=== PATIENT | male | born 1965 | race Caucasian/White ===

== ENCOUNTER 2019-04-12 09:10 | Day surgery (SDC) | payer BC ==
[2019-04-06 15:16] VITALS: BMI 25.4
[~2019-04-12 09:10] MED LIST: LACTATED RINGERS 1,000 ML IV SCH; LIDOCAINE 1% 20 ML VIAL (10MG/ML) FOR IV START INTRADERMA PRN
[2019-04-12 09:31] VITALS: TEMP 97.8
[2019-04-12] MEDS ORDERED: PROPOFOL 10 MG/ML 20 ML VIAL IV ONE (10:05)
[2019-04-12 10:50] VITALS: PULSE 64
--- NOTE | 2019-04-12 10:51 | P.PCN ---
Date of Procedure: 04/12/19 Description of Procedure: BRIEF HISTORY: Patient is a 54-year-old pleasant male scheduled for an elective colonoscopy as a part of screening for malignant neoplasm of the colon. He denies any change in bowel habits, blood per rectum, family history of colon cancer. No prior colonoscopies reported. PROCEDURE PERFORMED: Colonoscopy with polypectomy and placement of an Endo Clip. PREOPERATIVE DIAGNOSIS: Screening for malignant neoplasm of the colon, no prior colonoscopy reported. ESTIMATED BLOOD LOSS: Minimal. IV sedation per Anesthesia. PROCEDURE: After informed consent was obtained, the patient, was brought into the endoscopy unit. IV sedation was administered by Anesthesia under continuous monitoring. Digital rectal examination was normal. Initially the Olympus CF-190 flexible video colonoscope was then inserted in the rectum, gradually advanced into the cecum without any difficulty. Careful examination was performed as the scope was gradually being withdrawn. Ileocecal valve and the appendiceal orifice were visualized and appeared normal. Prep was excellent. Mucosa of the cecum, ascending colon, transverse colon, descending colon, sigmoid colon, and rectum appeared normal. A large 17 mm pedunculated sigmoid polyp was removed with hot snare polypectomy with Endo Clip placement at the polypectomy site. Retroflexion was performed in the rectum and no lesions were seen. The patient tolerated the procedure well. IMPRESSION: Large pedunculated sigmoid colon polyp removed with hot snare polypectomy, with Endo Clip placement at polypectomy site. Otherwise, normal-appearing colon from rectum to cecum . RECOMMENDATIONS: Findings of this examination were discussed with the patient in his . Okay to resume diet. Okay to resume medications. Await pathology from polypectomy. Anticipate repeat colonoscopy in 3 years for high risk colon polyp pending pathology from polypectomy.
[2019-04-12 11:05] VITALS: BP 128/81; RESP 18
== END 2019-04-12 11:26 | disposition home or self-care (01) ==
LOC: ORWHC2ENDO 09:10
PROVIDERS: ATTEND Internal Medicine
DX: Z12.11 Encounter for screening for malignant neoplasm of colon (principal); C18.7 Malignant neoplasm of sigmoid colon; F17.200 Nicotine dependence, unspecified, uncomplicated; Z96.642 Presence of left artificial hip joint
CPT/HCPCS: 88305; 45385; J2704; 45382

== ENCOUNTER → 2019-05-19 | Outpatient (CLI) | payer BC ==
[2019-05-19 15:15] LABS: Basophils # (A) 0.1 k/uL (0-0.2); Basophils % (A) 1 %; Eosinophils # (A) 0.2 k/uL (0-0.7); Eosinophils % (A) 4 %; HCT 50.2 % (39.0-53.0); HGB 16.2 gm/dL (13.0-17.5); Lymphocytes % (A) 20 %; MCHC 32.3 g/dL (31.0-37.0); MCV 95.8 fL (80.0-100.0); Mean Platelet Volume 6.5; Monocytes # (A) 0.3 k/uL (0-1.0); Monocytes % (A) 7 %; Neutrophils # (A) 3.1 k/uL (1.3-7.7); Neutrophils % (A) 66 %; Platelet Count 317 k/uL (150-450); RBC 5.24 m/uL (4.30-5.90); RDW 12.2 % (11.5-15.5); WBC 4.7 k/uL (3.8-10.6)
[2019-05-19 15:23] LABS: ALT 23 U/L (4-49); AST 32 U/L (17-59); African American GFR (CKD) >90 (>60 ml/min/1.73 sqM); Alkaline Phosphatase 84 U/L (38-126); Anion Gap 7 mmol/L; Blood Urea Nitrogen 19 mg/dL (9-20); Calcium 9.8 mg/dL (8.4-10.2); Carbon Dioxide 30 mmol/L (22-30); Chloride 102 mmol/L (98-107); Glucose 111 mg/dL (74-99); Non-African American GFR(CKD) >90 (>60 ml/min/1.73 sqM); Potassium 4.7 mmol/L (3.5-5.1); Sodium 139 mmol/L (137-145); Total Bilirubin 1.2 mg/dL (0.2-1.3); Total Protein 7.9 g/dL (6.3-8.2)
--- NOTE | 2019-05-19 16:37 | CT ---
EXAMINATION TYPE: CT abdomen pelvis w con DATE OF EXAM: 05/19/2019 COMPARISON: NONE HISTORY: 54-year-old male polyps, possible colon ca TECHNIQUE: Contiguous axial scanning of the abdomen and pelvis following administration of 100 ml Iso vinnie 300 IV contrast. Delayed images through the kidneys and coronal/sagittal reconstructions perform ed. CT DLP: 1115 mGycm Automated exposure control for dose reduction was used. FINDINGS: Heart normal size without pericardial effusion. Lung bases clear without pleural effusion. 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 No focal liver lesion or biliary ductal dilatation. Portal venous system is patent. Gallbladder, adrenal glands, and pancreas appear within normal limits. Minimal perinephric edema, somewhat greater on the right. Slightly striated nephrograms on the delaye d kidney images may be artifactual. Subcentimeter hypodensity anterior left kidney too small for accu rate CT characterization, likely cyst. Nonspecific prominent 8 mm left periaortic lymph node. No additional mesenteric or retroperitoneal ly mphadenopathy identified. Tiny fatty umbilical hernia. Normal appendix. Oral contrast progressed to the proximal sigmoid colon. Mild stool burden. Moderate stool within the distal sigmoid and rectum. Bladder is urine distended. Prostate gland is enlarged measuring 5.5 cm wide. Patulous inguinal canal s. No abnormal fluid collection in the pelvis or pelvic lymphadenopathy. Bones: Left hip total arthroplasty. Degenerative changes at the right hip. Degenerative bridging anky losis at the SI joints. Hypertrophic facet arthropathy lower lumbar spine with trace grade 1 anteroli sthesis at L3-L4. Transitional lumbosacral segment with sacralized L5. Degenerative disc disease lowe r thoracic spine. IMPRESSION: 1. MODERATE STOOL WITHIN THE DISTAL SIGMOID AND RECTUM. 2. NONSPECIFIC BORDERLINE SIZED 8 MM LEFT PARAAORTIC LYMPH NODE, LIKELY CHRONIC REACTIVE/POST INFLAMM ATORY. NO ADDITIONAL SUSPICIOUS LYMPHADENOPATHY SEEN IN THE ABDOMEN OR PELVIS. 3. MILD PERINEPHRIC EDEMA MAY BE SEEN WITH SENESCENT CHANGE OR CHRONIC KIDNEY DISEASE. SLIGHTLY STRIA JEFF APPEARANCE TO THE NEPHROGRAMS ON DELAYED KIDNEY IMAGES MAY BE ARTIFACTUAL. CORRELATE WITH PATIENT 'S SYMPTOMS AND URINALYSIS TO EXCLUDE THE POSSIBILITY OF UNDERLYING INFECTION. 4. PROSTATOMEGALY OF 5.5 CM WIDE.
== END | disposition home or self-care (01) ==
LOC: RADCTMAIN 13:10
PROVIDERS: ATTEND Surgery
DX: N40.0 Benign prostatic hyperplasia without lower urinary tract symptoms (principal); C18.9 Malignant neoplasm of colon, unspecified
CPT/HCPCS: 80053; 82378; 85025; 74177; 36415; Q9967

== ENCOUNTER → 2019-06-28 | Outpatient (CLI) | payer BC ==
[2019-06-28 12:08] LABS: HCT 46.9 % (39.0-53.0); HGB 15.3 gm/dL (13.0-17.5); MCH 31.2 pg (25.0-35.0); MCHC 32.6 g/dL (31.0-37.0); MCV 95.6 fL (80.0-100.0); Mean Platelet Volume 6.5; Platelet Count 332 k/uL (150-450); RDW 12.3 % (11.5-15.5); WBC 5.6 k/uL (3.8-10.6)
== END | disposition home or self-care (01) ==
LOC: LABPAT 10:56
PROVIDERS: ATTEND Surgery
DX: Z01.818 Encounter for other preprocedural examination (principal); Z01.812 Encounter for preprocedural laboratory examination; C18.9 Malignant neoplasm of colon, unspecified
CPT/HCPCS: 36415; 80051; 85027; 93005

== ENCOUNTER 2019-07-02 07:00 | Inpatient (IN) | payer BC ==
[2019-06-28 12:20] VITALS: BMI 25.4
[~2019-07-02 07:00] MED LIST changes: +DEXAMETHASONE SOD PHOSPHATE 10 MG/ML 1 ML VIAL IV ONE; +HEPARIN SODIUM,PORCINE 5,000 UNIT/ML 1 ML VIAL SQ ONE; +HYDROmorphone 0.5 MG/0.5 ML SYRINGE IVP PRN; -LACTATED RINGERS 1,000 ML IV SCH; +ONDANSETRON 4 MG/2 ML VIAL IVP PRN; +SCOPOLAMINE 1.5MG/72HR PATCH TRANSDERM ONE; +metroNIDAZOLE-NS PMX 500 MG in SALINE 1 100ML.BAG IVPB ONE
[2019-07-02] MEDS ORDERED: ALVIMOPAN 12 MG CAPSULE PO ONE (07:33)
[2019-07-02] MEDS: LACTATED RINGERS 1,000 ML IV SCH (07:34)
[2019-07-02] MEDS ORDERED: MIDAZOLAM 2 MG/2 ML VIAL IVP ONE (07:44)
[2019-07-02] MEDS ORDERED: fentaNYL (PF) 50 MCG/ML 2 ML AMP IVP ONE (07:46)
[2019-07-02] MEDS ORDERED: NALOXONE 0.4 MG/ML 1 ML VIAL IV PRN (08:34)
[2019-07-02] MEDS ORDERED: ROCURONIUM BROMIDE 10 MG/ML 5 ML VIAL IV ONE (08:45)
[2019-07-02] MEDS ORDERED: LIDOCAINE 1% INJ 10MG/ML (20 ML MDV) ONE (08:45)
[2019-07-02] MEDS ORDERED: PROPOFOL 10 MG/ML 20 ML VIAL IV ONE (08:45)
[2019-07-02] MEDS ORDERED: NEOSTIGMINE 1 MG/ML 10 ML VIAL ONE (08:45)
[2019-07-02] MEDS ORDERED: HEPARIN SODIUM,PORCINE 5,000 UNIT/ML 1 ML VIAL ONE (08:45)
[2019-07-02] MEDS ORDERED: ePHEDrine SULFATE/0.9% NACL/PF 50 MG/5 ML SYRINGE IV ONE (08:45)
[2019-07-02] MEDS ORDERED: fentaNYL (PF) 50 MCG/ML 2 ML AMP ONE (08:45)
[2019-07-02] MEDS ORDERED: MIDAZOLAM 2 MG/2 ML VIAL ONE (08:45)
[2019-07-02] MEDS ORDERED: GLYCOPYRROLATE 0.2 MG/ML 2 ML VIAL ONE (08:45)
[2019-07-02] MEDS ORDERED: LACTATED RINGERS 1,000 ML IV ONE ×2 (09:19→11:05)
[2019-07-02] MEDS ORDERED: HYDROmorphone 1 MG/ML 1 ML SYRINGE IVP PRN (10:52)
[2019-07-02] MEDS ORDERED: ONDANSETRON 4 MG/2 ML VIAL IVP PRN (10:52)
--- NOTE | 2019-07-02 10:57 | P.OP ---
Date of Procedure: 07/02/19 Procedure(s) Performed: PREOPERATIVE DIAGNOSIS: Sigmoid colon cancer, umbilical hernia POSTOPERATIVE DIAGNOSIS: Same PROCEDURE: Low anterior sigmoid resection, repair umbilical hernia SURGEON: Antelmo EBL: 25 mL ANESTHESIA: General COMPLICATIONS: None OPERATIVE PROCEDURE: Patient place in the operative table in the supine position. The patient was placed under general anesthesia. The patient was then placed in lithotomy. The abdomen was prepped and draped in usual sterile fashion. A vertical incision was made extending from the infraumbilical location to the suprapubic location. The fascia was divided as well. The fascia at the umbilical hernia site was incorporated into the midline incision. This was dissected fully. The Bookwalter retractor was utilized. The sigmoid colon was fully mobilized by incising the white line of Toldt. The left and right ureters were both identified and preserved. The tattoo site in the mid sigmoid colon was easily identified. A site was chosen for division of the sigmoid colon proximal to the tattoo site. A small colotomy was created and the 29 EEA anvil was advanced into the lumen of the sigmoid colon and milked proximally. The bowel was then divided using a linear 75 stapler and the anvil was brought out adjacent to the staple line. A 3-0 silk pursestring suture was placed around the anvil at that location. The mesentery was divided using the LigaSure device. Larger vessels were ligated using 3-0 [address] ties. Dissection took place down to the proximal rectum where the tenia was noted to splay out. The proximal rectum was divided using the contour stapler. The specimen was passed off the field at that point. No signs of bleeding at either staple line was noted after irrigation. The stapler was then inserted into the anus and brought up to the staple line. The obturator was brought out just posterior to the staple line. The 2 portions of the stapler were connected to one another and subsequently tightened and fired. The bowel was clamped proximal to the anastomosis. The rigid sigmoidoscope was utilized to fill the anastomotic site nicely with air. There was saline in the pelvis at this time. No evidence of leak was seen. The abdomen was irrigated with saline. The liver, stomach, visualized colon, and small bowel appeared normal. The midline fascia was then reapproximated using 2 separate double-stranded #1 PDS sutures. The subcutaneous tissues were closed using 3-0 Vicryl sutures. The skin was then closed using anitra. Sterile dressings were then applied. DISPOSITION: Stable to recovery room
[2019-07-02] MEDS: ROPIVACAINE 250 MG, fentaNYL (PF) 625 MCG in SODIUM CHLORIDE 0.9% 188 ML EPIDURAL PRN ×2 (11:06→11:37)
[2019-07-02 12:02] LABS: Glucose,Whole Blood 126 mg/dL (75-99)
[2019-07-02] MEDS: D5-0.45% NACL WITH KCL 20MEQ/L 1,000 ML IV SCH ×2 (17:20→21:03)
[2019-07-02] MEDS: KETOROLAC 30 MG/ML 1 ML VIAL IVP SCH (17:52)
[2019-07-02] MEDS: FAMOTIDINE 20 MG/2 ML VIAL IV SCH (20:58)
[2019-07-03] MEDS: D5-0.45% NACL WITH KCL 20MEQ/L 1,000 ML IV SCH ×4 (00:47→23:14)
[2019-07-03 07:17] LABS: Basophils % (A) 0 %; Eosinophils % (A) 0 %; HCT 40.4 % (39.0-53.0); HGB 13.3 gm/dL (13.0-17.5); Lymphocytes # (A) 0.9 k/uL (1.0-4.8); Lymphocytes % (A) 11 %; MCH 30.9 pg (25.0-35.0); MCHC 32.9 g/dL (31.0-37.0); MCV 93.9 fL (80.0-100.0); Mean Platelet Volume 6.4; Monocytes # (A) 0.6 k/uL (0-1.0); Monocytes % (A) 7 %; Neutrophils # (A) 6.4 k/uL (1.3-7.7); Neutrophils % (A) 80 %; Platelet Count 265 k/uL (150-450); RDW 12.3 % (11.5-15.5)
[2019-07-03 07:36] LABS: African American GFR (CKD) >90 (>60 ml/min/1.73 sqM); Anion Gap 6 mmol/L; Blood Urea Nitrogen 12 mg/dL (9-20); Calcium 8.6 mg/dL (8.4-10.2); Carbon Dioxide 26 mmol/L (22-30); Chloride 102 mmol/L (98-107); Glucose 112 mg/dL (74-99); Non-African American GFR(CKD) >90 (>60 ml/min/1.73 sqM); Potassium 4.6 mmol/L (3.5-5.1); Sodium 134 mmol/L (137-145)
[2019-07-03] MEDS: FAMOTIDINE 20 MG/2 ML VIAL IV SCH ×2 (08:22→20:29)
--- NOTE | 2019-07-03 09:16 | P.CONS ---
History of Present Illness - Reason for Consult Consult date: 07/03/19 Medical management - History of Present Illness This is a 54-year-old male patient of Dr. Pittman with past medical history of colon cancer recently diagnosed following colonoscopy done by Dr. Reno. Pathology was positive for sigmoid colon polyp invasive moderately differentiated adenocarcinoma arising in tubular adenoma. Patient is been brought into the hospital under care of Dr. Rodriges status post low anterior sigmoid resection and repair of umbilical hernia. Patient is currently on epidural for pain control and Li catheter in place. He is tolerating clear liquids with no nausea or vomiting. Patient denies having any lightheadedness or dizziness. Patient states he is passing gas and did have a bowel movement. Patient states he is utilizing incentive spirometry 10 times per hour. Patient is reaching 3000 ML's. Patient states he is scheduled to see Dr. Gonzalez on July 28. Review of Systems Constitutional: Denies anorexia, Denies chills, Denies fatigue, Denies fever, Denies lethargy, Denies poor appetite, Denies weakness Eyes: denies blurred vision, denies pain Ears, nose, mouth and throat: Denies headache, Denies sore throat, Denies vertigo Cardiovascular: Denies chest pain, Denies decreased exercise tolerance, Denies dyspnea on exertion, Denies edema, Denies leg edema, Denies lightheadedness, Denies shortness of breath, Denies syncope Respiratory: Denies cough, Denies cough with sputum, Denies dyspnea, Denies excessive sputum, Denies hemoptysis, Denies home oxygen, Denies snoring, Denies wheezing Gastrointestinal: Denies abdominal pain, Denies constipation, Denies diarrhea, Denies loss of appetite, Denies nausea, Denies vomiting Genitourinary: Denies dysuria, Denies urinary retention (li) Musculoskeletal: Denies frequent falls, Denies gait dysfunction, Denies muscle weakness, Denies myalgias Integumentary: Denies pruritus, Denies rash Neurological: Denies change in mentation, Denies change in speech, Denies numbness, Denies weakness Psychiatric: Denies anxiety, Denies depression Endocrine: Denies fatigue, Denies weight change Past Medical History Past Medical History: No Reported History Additional Past Medical History / Comment(s): NEW DX COLON CANCER BY DR. RENO History of Any Multi-Drug Resistant Organisms: None Reported Past Surgical History: Joint Replacement Additional Past Surgical History / Comment(s): LT BIBI. COLONOSCOPY Past Anesthesia/Blood Transfusion Reactions: No Reported Reaction Smoking Status: Light tobacco smoker Additional Past Alcohol Use History / Comment(s): Patient care will occasionally smokes a cigar possibly up to 3-4 times per year only. No marijuana or illicit drug use. - Past Family History Mother Family Medical History: No Reported History Additional Family Medical History / Comment(s): Mother is alive at age 75 with Alzheimer's dementia. Father Additional Family Medical History / Comment(s): Patient does not have any contact with his father but does know that he has history of diverticulitis. Sister(s) Additional Family Medical History / Comment(s): Patient has 2 sisters with no major medical problems. Patient has 2 stepbrothers. Patient has one son that is mentally handicapped and one daughter with no major medical problems. Medications and Allergies Home Medications Medication Instructions Recorded Confirmed Type Sildenafil Citrate [Viagra] 25 mg PO DIRECTED PRN 04/06/19 07/02/19 History Allergies Allergy/AdvReac Type Severity Reaction Status Date / Time No Known Allergies Allergy Verified 06/28/19 12:02 Physical Exam Vitals: Vital Signs Temp Pulse Pulse Resp BP Pulse Ox 07/03/19 07:00 98.5 F 67 17 131/80 92 L 07/03/19 01:02 98.5 F 68 15 132/85 97 07/02/19 23:19 15 07/02/19 19:01 98.1 F 78 15 106/70 94 L 07/02/19 14:45 69 112/72 96 07/02/19 14:30 81 112/72 96 07/02/19 14:00 80 101/67 96 07/02/19 13:45 81 105/66 94 L 07/02/19 13:30 80 102/55 95 07/02/19 13:15 70 102/63 95 07/02/19 13:00 83 118/68 96 07/02/19 12:45 73 146/76 97 07/02/19 12:30 70 114/72 95 07/02/19 12:15 97.7 F 66 114/72 95 07/02/19 11:36 64 16 126/74 94 L 07/02/19 11:20 73 16 133/65 96 07/02/19 11:05 66 16 132/61 94 L 07/02/19 10:51 96.8 F L 80 12 125/84 96 Intake and Output 07/02/19 07/03/19 07/03/19 22:59 06:59 14:59 Intake Total 400 Output Total 400 1600 675 Balance -400 1600 -217 Intake: Oral 400 Output: Urine 400 1600 675 Other: Voiding Method Indwelling Catheter Indwelling Catheter Indwelling Catheter # Voids 1 Gen: This is a 54-year-old male. He is resting in the recliner and appears to be comfortable and in no acute distress. HEENT: Head is atraumatic, normocephalic. Pupils equal, round. Sclerae is anicteric. NECK: Supple. No JVD. No lymphadenopathy. No thyromegaly. LUNGS: Clear to auscultation. No wheezes or rhonchi. No intercostal retractions. HEART: Regular rate and rhythm. No murmur. ABDOMEN: Soft. Bowel sounds hypoactive. No masses. No tenderness. Midline incision. Li catheter in place draining pale clear bela urine. Epidural in place. EXTREMITIES: No pedal edema. No calf tenderness. JEFF hose in place. NEUROLOGICAL: Patient is awake, alert and oriented x3. Cranial nerves 2 through 12 are grossly intact. Results CBC & Chem 7: 07/03/19 06:43 07/03/19 06:43 Labs: Abnormal Lab Results - Last 24 Hours (Table) 07/02/19 07/03/19 07/03/19 Range/Units 11:59 06:43 06:43 Lymphocytes # 0.9 L (1.0-4.8) k/uL Sodium 134 L (137-145) mmol/L Glucose 112 H (74-99) mg/dL POC Glucose (mg/dL) 126 H (75-99) mg/dL Assessment and Plan Plan: 1. Sigmoid colon cancer status post lower anterior sigmoid resection and repair of umbilical hernia. Continue current pain management, incentive spirometry to reduce incidence of atelectasis and hospital-acquired pneumonia, activity. Patient is currently tolerating clear liquid diet. Pathology is pending. 2. Osteoarthritis with previous history of left total hip arthroplasty stable. 3. DVT prophylaxis. Heparin subcu. 4. GI prophylaxis. Pepcid. Discharge plan: home Impression and plan of care have been directed as dictated by the signing physician. Kate Ann nurse practitioner acting as scribe for signing physician.
--- NOTE | 2019-07-03 09:44 | P.PN ---
Progress Note - Text Progress Note Date: 07/03/19 POD 1, Cath day 2 with a T8-9 epidural placed for a sigmoid colectomy. running between 4-6ml/hr. doing well, no issues overnight. Analgesia is adequate, no PRN meds used over night. Able to ambulate. site is clean and dry, no erythema. NO pruritis. continue epidural catheter at current settings.
[2019-07-03] MEDS: LACTATED RINGERS 1,000 ML IV SCH ×2 (10:42→23:15)
--- NOTE | 2019-07-03 12:06 | P.PN ---
Subjective Progress Note Date: 07/03/19 Principal diagnosis: Colon cancer Patient doing well today. Had a small and flatus with blood earlier today. White blood cell count 8 hemoglobin 13.3. Vitals are stable. He is ambulating quite a bit. Objective - Vital Signs Vital signs: Vital Signs Temp 98.5 F 07/03/19 07:00 Pulse 67 07/03/19 07:00 Resp 17 07/03/19 07:00 BP 131/80 07/03/19 07:00 Pulse Ox 92 L 07/03/19 07:00 Intake & Output 07/02/19 07/03/19 07/03/19 18:59 06:59 18:59 Intake Total 2654 400 Output Total 125 1999 Balance 2528 -1999 Weight 74.843 kg Intake: IV 2654 Oral 400 Output: Urine 100 1999 67 Estimated Blood Loss 25 Other: Voiding Method Indwelling Catheter Indwelling Catheter Indwelling Catheter # Voids 1 - Exam Abdomen: Soft, minimal distention, mild tenderness, dressing clean and dry - Labs CBC & Chem 7: 07/03/19 06:43 07/03/19 06:43 Labs: Abnormal Lab Results - Last 24 Hours (Table) 07/03/19 07/03/19 Range/Units 06:43 06:43 Lymphocytes # 0.9 L (1.0-4.8) k/uL Sodium 134 L (137-145) mmol/L Glucose 112 H (74-99) mg/dL Assessment and Plan (1) Cancer of sigmoid colon Narrative/Plan: Continue clear liquids. Ambulate. Continue heparin subcu. Resume Entereg. Recheck labs tomorrow. Current Visit: Yes Status: Acute Code(s): C18.7 - MALIGNANT NEOPLASM OF S IGMOID COLON SNOMED Code(s): 755267682
[2019-07-03] MEDS: ALVIMOPAN 12 MG CAPSULE PO SCH ×2 (12:20→20:29)
[2019-07-03] MEDS: ROPIVACAINE 250 MG, fentaNYL (PF) 625 MCG in SODIUM CHLORIDE 0.9% 188 ML EPIDURAL PRN (15:44)
[2019-07-03] MEDS: HEPARIN SODIUM,PORCINE 5,000 UNIT/ML 1 ML VIAL SQ SCH ×2 (15:52→23:14)
[2019-07-04] MEDS: D5-0.45% NACL WITH KCL 20MEQ/L 1,000 ML IV SCH ×3 (06:01→23:57)
[2019-07-04 06:52] LABS: Basophils % (A) 0 %; Eosinophils # (A) 0.2 k/uL (0-0.7); Eosinophils % (A) 3 %; HGB 13.8 gm/dL (13.0-17.5); Lymphocytes # (A) 0.8 k/uL (1.0-4.8); Lymphocytes % (A) 11 %; MCH 30.8 pg (25.0-35.0); MCV 93.6 fL (80.0-100.0); Mean Platelet Volume 6.2; Monocytes # (A) 0.4 k/uL (0-1.0); Monocytes % (A) 6 %; Neutrophils # (A) 5.9 k/uL (1.3-7.7); Neutrophils % (A) 79 %; Platelet Count 280 k/uL (150-450); RBC 4.48 m/uL (4.30-5.90); RDW 12.3 % (11.5-15.5); WBC 7.5 k/uL (3.8-10.6)
[2019-07-04 06:58] LABS: African American GFR (CKD) >90 (>60 ml/min/1.73 sqM); Anion Gap 6 mmol/L; Blood Urea Nitrogen 9 mg/dL (9-20); Calcium 8.7 mg/dL (8.4-10.2); Carbon Dioxide 24 mmol/L (22-30); Chloride 104 mmol/L (98-107); Glucose 109 mg/dL (74-99); Non-African American GFR(CKD) >90 (>60 ml/min/1.73 sqM); Potassium 4.4 mmol/L (3.5-5.1); Sodium 134 mmol/L (137-145)
[2019-07-04] MEDS: HEPARIN SODIUM,PORCINE 5,000 UNIT/ML 1 ML VIAL SQ SCH ×3 (08:14→23:57)
[2019-07-04] MEDS: FAMOTIDINE 20 MG/2 ML VIAL IV SCH ×2 (08:15→21:40)
[2019-07-04] MEDS: ALVIMOPAN 12 MG CAPSULE PO SCH ×2 (08:15→21:40)
--- NOTE | 2019-07-04 10:35 | P.PN ---
Subjective Progress Note Date: 07/04/19 Principal diagnosis: Colon cancer Patient doing well today. He did pass flatus once again. No rectal bleeding. Tolerating clear liquids. White blood cell count normal. He is afebrile. Objective - Vital Signs Vital signs: Vital Signs Temp 98.3 F 07/04/19 07:00 Pulse 79 07/04/19 07:00 Resp 16 07/04/19 07:00 BP 129/82 07/04/19 07:00 Pulse Ox 92 L 07/04/19 07:00 Intake & Output 07/03/19 07/04/19 07/04/19 18:59 06:59 18:59 Intake Total 1800 1500 Output Total 2275 2600 Balance -475 -1100 Intake: Intake, IV Titration 1000 1500 Amount D5-0.45% NaCl with KCl 1000 1500 20Meq/l 1,000 ml @ 125 mls/hr IV .Q8H [facility] Rx#: [id number] Oral 800 Output: Urine 2275 2600 Other: Voiding Method Indwelling Catheter Indwelling Catheter Indwelling Catheter - Exam Abdomen: Soft, minimal distention, minimal tenderness, dressing clean dry - Labs CBC & Chem 7: 07/04/19 06:22 07/04/19 06:22 Labs: Abnormal Lab Results - Last 24 Hours (Table) 07/04/19 07/04/19 Range/Units 06:22 06:22 Lymphocytes # 0.8 L (1.0-4.8) k/uL Sodium 134 L (137-145) mmol/L Glucose 109 H (74-99) mg/dL Assessment and Plan (1) Cancer of sigmoid colon Narrative/Plan: Add abdominal binder. Begin full liquids for dinner. Continue ambulation. Current Visit: Yes Status: Acute Code(s): C18.7 - MALIGNANT NEOPLASM OF SIGMOID COLON SNOMED Code(s): 076602047
--- NOTE | 2019-07-04 10:58 | P.PN ---
Subjective Progress Note Date: 07/04/19 This is a 54-year-old male patient of Dr. Pittman with past medical history of colon cancer recently diagnosed following colonoscopy done by Dr. Reno. Pathology was positive for sigmoid colon polyp invasive moderately differentiated adenocarcinoma arising in tubular adenoma. Patient is been br ought into the hospital under care of Dr. Rodriges status post low anterior sigmoid resection and repair of umbilical hernia. Patient is currently on epidural for pain control and Li catheter in place. He is tolerating clear liquids with no nausea or vomiting. Patient denies having any lightheadedness or dizziness. Patient states he is passing gas and did have a bowel movement. Patient states he is utilizing incentive spirometry 10 times per hour. Patient is reaching 3000 ML's. Patient states he is scheduled to see Dr. Gonzalez on July 28. 07/04: Patient remains with epidural and Li in place. His pain is a 0.5 out of 10. He states his appetite is good. He is tolerating diet of clear liquids with no nausea or vomiting. He has passing gas. Patient is ambulatory and using a walker. Patient is afebrile, heart rate 79, blood pressure 129/82, pulse ox 92% on room air. CBC is normal, sodium 134, creatinine 0.89, blood sugar 109. Patient is to start full liquids for dinner today. Objective - Vital Signs Vital signs: Vital Signs Temp 98.3 F 07/04/19 07:00 Pulse 79 07/04/19 07:00 Resp 16 07/04/19 07:00 BP 129/82 07/04/19 07:00 Pulse Ox 92 L 07/04/19 07:00 Intake & Output 07/03/19 07/04/19 07/04/19 18:59 06:59 18:59 Intake Total 1800 1500 Output Total 2275 2600 Balance -475 -1100 Intake: Intake, IV Titration 1000 1500 Amount D5-0.45% NaCl with KCl 1000 1500 20Meq/l 1,000 ml @ 125 mls/hr IV .Q8H [facility] Rx#: [id number] Oral 800 Output: Urine 2275 2600 Other: Voiding Method Indwelling Catheter Indwelling Catheter Indwelling Catheter - Exam Review of Systems Constitutional: Denies anorexia, Denies chills, Denies fatigue, Denies fever, Denies lethargy, Denies poor appetite, Denies weakness Eyes: denies blurred vision, denies pain Ears, nose, mouth and throat: Denies headache, Denies sore throat, Denies vertigo Cardiovascular: Denies chest pain, Denies decreased exercise tolerance, Denies dyspnea on exertion, Denies edema, Denies leg edema, Denies lightheadedness, Denies shortness of breath, Denies syncope Respiratory: Denies cough, Denies cough with sputum, Denies dyspnea, Denies excessive sputum, Denies hemoptysis, Denies home oxygen, Denies snoring, Denies wheezing Gastrointestinal: Denies abdominal pain (0.5/10), Denies constipation, Denies diarrhea, Denies loss of appetite, Denies nausea, Denies vomiting Genitourinary: Denies dysuria, Denies urinary retention (li) Musculoskeletal: Denies frequent falls, Denies gait dysfunction, Denies muscle weakness, Denies myalgias Integumentary: Denies pruritus, Denies rash Neurological: Denies change in mentation, Denies change in speech, Denies numbness, Denies weakness Psychiatric: Denies anxiety, Denies depression Endocrine: Denies fatigue, Denies weight change Physical examination Gen: This is a 54-year-old male. He is standing with walker in his room ready to go for walk. HEENT: Head is atraumatic, normocephalic. Pupils equal, round. Sclerae is anicteric. NECK: Supple. No JVD. No lymphadenopathy. No thyromegaly. LUNGS: Clear to auscultation. No wheezes or rhonchi. No intercostal retractions. HEART: Regular rate and rhythm. No murmur. ABDOMEN: Soft. Bowel sounds hypoactive. No masses. No tenderness. Midline incision. Li catheter in place draining pale clear bela urine. Epidural in place. EXTREMITIES: No pedal edema. No calf tenderness. JEFF hose in place. NEUROLOGICAL: Patient is awake, alert and oriented x3. Cranial nerves 2 through 12 are grossly intact. - Labs CBC & Chem 7: 07/04/19 06:22 07/04/19 06:22 Labs: Abnormal Lab Results - Last 24 Hours (Table) 07/04/19 07/04/19 Range/Units 06:22 06:22 Lymphocytes # 0.8 L (1.0-4.8) k/uL Sodium 134 L (137-145) mmol/L Glucose 109 H (74-99) mg/dL Assessment and Plan Plan: 1. Sigmoid colon cancer status post lower anterior sigmoid resection and repair of umbilical hernia. Continue current pain management, incentive spirometry to reduce incidence of atelectasis and hospital-acquired pneumonia, activity. Patient is currently tolerating clear liquid diet. Diet advanced to full liquids for dinner. Pathology is pending. 2. Osteoarthritis with previous history of left total hip arthroplasty stable. 3. DVT prophylaxis. Heparin subcu. 4. GI prophylaxis. Pepcid. Discharge plan: home Impression and plan of care have been directed as dictated by the signing physician. Kate Ann nurse practitioner acting as scribe for signing physician.
[2019-07-04] MEDS: ROPIVACAINE 250 MG, fentaNYL (PF) 625 MCG in SODIUM CHLORIDE 0.9% 188 ML EPIDURAL PRN (14:58)
--- NOTE | 2019-07-04 18:13 | P.PN ---
Progress Note - Text Progress Note Date: 07/04/19 POD 2, Cath day 3 from colectomy. Doing well. No pain, pruritis, altered mental status. Ambulating, passing flatus. No PRN meds needed. Infusion at 6cc/hr. Site clean and dry. Continue to monitor, d/c catheter Friday07/05/2019.
[2019-07-05] MEDS: LACTATED RINGERS 1,000 ML IV SCH (03:27)
--- NOTE | 2019-07-05 04:12 | P.PN ---
Progress Note - Text Progress Note Date: 07/05/19 POD 3, Cath day 4. colectomy. T8-9 epidural catheter running at 6cc/hr. Patient sleeping comfortably. Able to ambulate, passing flatus, clear liquid diet. No fever or chills, lower ext weakness, altered mental status. Plan is to d/c catheter today. Call anesthesia with questions.
[2019-07-05 07:15] LABS: Basophils % (A) 1 %; Eosinophils # (A) 0.3 k/uL (0-0.7); Eosinophils % (A) 7 %; HCT 40.5 % (39.0-53.0); HGB 13.8 gm/dL (13.0-17.5); Lymphocytes # (A) 0.9 k/uL (1.0-4.8); Lymphocytes % (A) 18 %; MCH 31.7 pg (25.0-35.0); MCHC 34.1 g/dL (31.0-37.0); Mean Platelet Volume 6.4; Monocytes # (A) 0.4 k/uL (0-1.0); Monocytes % (A) 8 %; Neutrophils # (A) 3.3 k/uL (1.3-7.7); Neutrophils % (A) 65 %; Platelet Count 255 k/uL (150-450); RBC 4.35 m/uL (4.30-5.90); RDW 12.1 % (11.5-15.5); WBC 5.1 k/uL (3.8-10.6)
[2019-07-05] MEDS: FAMOTIDINE 20 MG/2 ML VIAL IV SCH ×2 (07:37→21:17)
[2019-07-05] MEDS: HEPARIN SODIUM,PORCINE 5,000 UNIT/ML 1 ML VIAL SQ SCH ×2 (07:38→16:23)
[2019-07-05] MEDS: D5-0.45% NACL WITH KCL 20MEQ/L 1,000 ML IV SCH ×2 (08:11→16:23)
[2019-07-05] MEDS ORDERED: KETOROLAC 30 MG/ML 1 ML VIAL IVP PRN (10:12)
--- NOTE | 2019-07-05 10:42 | P.PN ---
<Francy Tam Camden - Last Filed: 07/05/19 10:39> Subjective Progress Note Date: 07/05/19 CHIEF COMPLAINT: Colon cancer HISTORY OF PRESENT ILLNESS: Patient is status post low anterior sigmoid resection and repair of umbilical hernia. Postoperative day #3. Patient examined at the bedside. He is rating his pain 1/10. Epidural is infusing. He is tolerating diet. No nausea or vomiting. Passing flatus. Reports bowel movement this morning. He has been ambulating in the hallway. Vital signs stable. He is afebrile. WBC 5.1. Hemoglobin 13.8. PHYSICAL EXAM: VITAL SIGNS: Reviewed. GENERAL: Well-developed in no acute distress. HEENT: No sclera icterus. Extraocular movements grossly intact. Moist buccal mucosa. Head is atraumatic, normocephalic. ABDOMEN: Soft. Nondistended. Appropriate surgical tenderness. Dressing noted with shadowing present. NEUROLOGIC: Alert and oriented. Cranial nerves II through XII grossly intact. ASSESSMENT: 1. Colon cancer, status post low anterior sigmoid resection and repair of umbilical hernia PLAN: -Advance diet to low fiber -Discontinue epidural -Discontinue li -Begin [place] and Toradol for pain control -Incentive spirometer -Activity as tolerated -Anticipate discharge home tomorrow if patient remains stable Nurse practitioner note has been reviewed by physician. Signing provider agrees with the documented findings, assessment, and plan of care. Objective - Vital Signs Vital signs: Vital Signs Temp 97.7 F 07/05/19 07:00 Pulse 72 07/05/19 07:00 Resp 18 07/05/19 07:00 BP 116/79 07/05/19 07:00 Pulse Ox 93 L 07/05/19 07:00 Intake & Output 07/04/19 07/05/19 07/05/19 18:59 06:59 18:59 Intake Total 1859.4 2250 Output Total 1400 1075 Balance 459.4 1175 Intake: Intake, IV Titration 1139.4 1650 Amount D5-0.45% NaCl with KCl 1000 1250 20Meq/l 1,000 ml @ 125 mls/hr IV .Q8H [facility] Rx#: [id number] Lactated Ringers 1,000 ml 400 @ 0 mls/hr IV [facility] Rx#:[id number] Ropivacaine 250 mg 139.4 fentaNYL (PF) 625 mcg In Sodium Chloride 0.9% 188 ml @ Per Protocol EPIDURAL .Q0M PRN Rx#: [id number] Oral 720 600 Output: Urine 1400 1075 Other: Voiding Method Indwelling Catheter Indwelling Catheter # Bowel Movements 1 - Labs CBC & Chem 7: 07/05/19 06:47 07/04/19 06:22 Labs: Abnormal Lab Results - Last 24 Hours (Table) 07/05/19 Range/Units 06:47 Lymphocytes # 0.9 L (1.0-4.8) k/uL <Rafael Rodriges - Last Filed: 07/05/19 10:49> Subjective As above. Patient doing well today. Good bowel function. Agree with increasing diet. Discontinue epidural. Possible discharge tomorrow. Objective - Vital Signs Vital signs: Vital Signs Temp 97.7 F 07/05/19 07:00 Pulse 72 07/05/19 07:00 Resp 18 07/05/19 07:00 BP 116/79 07/05/19 07:00 Pulse Ox 93 L 07/05/19 07:00 Intake & Output 07/04/19 07/05/19 07/05/19 18:59 06:59 18:59 Intake Total 1859.4 2250 Output Total 1400 1075 Balance 459.4 1175 Intake: Intake, IV Titration 1139.4 1650 Amount D5-0.45% NaCl with KCl 1000 1250 20Meq/l 1,000 ml @ 125 mls/hr IV .Q8H [facility] Rx#: [id number] Lactated Ringers 1,000 ml 400 @ 0 mls/hr IV .[facility] Rx#:[id number] Ropivacaine 250 mg 139.4 fentaNYL (PF) 625 mcg In Sodium Chloride 0.9% 188 ml @ Per Protocol EPIDURAL .Q0M PRN Rx#: [id number] Oral 720 600 Output: Urine 1400 1075 Other: Voiding Method Indwelling Catheter Indwelling Catheter # Bowel Movements 1 - Labs CBC & Chem 7: 07/05/19 06:47 07/04/19 06:22 Labs: Abnormal Lab Results - Last 24 Hours (Table) 07/05/19 Range/Units 06:47 Lymphocytes # 0.9 L (1.0-4.8) k/uL Assessment and Plan (1) Cancer of sigmoid colon Current Visit: Yes Status: Acute Code(s): C18.7 - MALIGNANT NEOPLASM OF SIGMOID COLON SNOMED Code(s): 673293091
--- NOTE | 2019-07-05 13:12 | P.PN ---
Subjective Progress Note Date: 07/05/19 Principal diagnosis: Colon cancer post lower anterior sigmoid resection, umbilical hernia repair, osteoarthritis, pain control. This is a 54-year-old male patient of Dr. Pittman with past medical history of colon cancer recently diagnosed following colonoscopy done by Dr. Reno. Pathology was positive for sigmoid colon polyp invasive moderately differentiated adenocarcinoma arising in tubular adenoma. Patient is been brought into the hospital under care of Dr. Rodriges status post low anterior sigmoid resection and repair of umbilical hernia. Patient is currently on epidural for pain control and Vasquez catheter in place. He is tolerating clear liquids with no nausea or vomiting. Patient denies having any lightheadedness or dizziness. Patient states he is passing gas and did have a bowel movement. Patient states he is utilizing incentive spirometry 10 times per hour. Patient is reaching 3000 ML's. Patient states he is scheduled to see Dr. Gonzalez on July 28. 07/04: Patient remains with epidural and Vasquez in place. His pain is a 0.5 out of 10. He states his appetite is good. He is tolerating diet of clear liquids with no nausea or vomiting. He has passing gas. Patient is ambulatory and using a walker. Patient is afebrile, heart rate 79, blood pressure 129/82, pulse ox 92% on room air. CBC is normal, sodium 134, creatinine 0.89, blood sugar 109. Patient is to start full liquids for dinner today. 07/05: Patient is doing very well still have epidural will come out today along with his Vasquez catheter, pain is well controlled this point, no pathology from his surgery, mobility is much better, will increase diet to full liquid. Objective - Vital Signs Vital signs: Vital Signs Temp 97.7 F 07/05/19 07:00 Pulse 72 07/05/19 07:00 Resp 18 07/05/19 07:00 BP 116/79 07/05/19 07:00 Pulse Ox 93 L 07/05/19 07:00 Intake & Output 07/04/19 07/05/19 07/05/19 18:59 06:59 18:59 Intake Total 1859.4 2250 Output Total 1400 1075 Balance 459.4 1175 Intake: Intake, IV Titration 1139.4 1650 Amount D5-0.45% NaCl with KCl 1000 1250 20Meq/l 1,000 ml @ 125 mls/hr IV .Q8H [facility] Rx#: [id number] Lactated Ringers 1,000 ml 400 @ 0 mls/hr IV [facility] Rx#:[id number] Ropivacaine 250 mg 139.4 fentaNYL (PF) 625 mcg In Sodium Chloride 0.9% 188 ml @ Per Protocol EPIDURAL .Q0M PRN Rx#: [id number] Oral 720 600 Output: Urine 1400 1075 Other: Voiding Method Indwelling Catheter Indwelling Catheter # Bowel Movements 1 - Exam Review of systems: CONSTITUTIONAL: Well-developed no acute respiratory distress. EYES: No icterus sclerae, no conjunctivitis. EARS, NOSE, MOUTH, THROAT, and FACE: No sore throat, lymphadenopathy, carotid bruits or deformity. RESPIRATORY: No SOB cough or wheezes. CARDIOVASCULAR: No CP, Palpitation, PND, Orthopnea, or angina. GASTROINTESTINAL: Slight abdominal pain with distention no nausea or vomiting surgical site is good. GENITOURINARY: Negative for Hematuria or UTI, no kidney stones. INTEGUMENT/BREAST: Negative for any muscular injury with mild osteoarthritis.. HEMATOLOGIC/LYMPHATIC: Negative for bleed or purpura. MUSCULOSKELTAL: Negative for Myalgia or arthralgia. NEURLOGICAL: No LOC, Sz or syncope, blurred vision dizziness or abnormality.. BEHAVIORAL/PSYCH: Negative. ENDOCRINE: Negative. Physical examinations: General Appearance: Alert, cooperative, no distress, appears stated age. Neck HEENT: Supple, no lymphadenopathy, no thyroid enlargement, no carotid b ruits. Lungs: Clear to auscultation without crackles or wheezes no rhonchi, no deformity. Chest Wall: Chest wall normal expansion with deep inspiration no tenderness and no deformity was found on exam, no costochondral pain or discomfort. Heart: Regular rate and rhythm, S1, S2 normal, no murmur, rub or gallop. Back: Symmetric, no curvature, ROM normal, no CVA tenderness. Abdomen: Incision in the midline looks fine slight bleeding on the dressing on the lower side with no induration no significant tenderness no bowel sounds at this point. Extremities: Extremities normal, atraumatic, no cyanosis or edema. Pulses: 2+ and symmetric. Skin: Skin color, texture, tugor normal, no rashes or lesions. Neurologic: Alert oriented x3 cranial nerves II through XII intact, no motor deficit, no abnormal balance or gait. - Labs CBC & Chem 7: 07/05/19 06:47 07/04/19 06:22 Labs: Abnormal Lab Results - Last 24 Hours (Table) 07/05/19 Range/Units 06:47 Lymphocytes # 0.9 L (1.0-4.8) k/uL Assessment and Plan Plan: 1 Colon Cancer: Post low anterior sigmoid resection and repair of umbilical hernia, is doing very well so far, titrate mobility and diet continue postsurg ical care. Ex 2 pain control: Patient still on epidural currently will be switched to oral medication today. 3 severe osteoarthritis: Post left total hip arthroplasty, stable off medication. 4 DVT prophylaxis: Will add knee-high JEFF hose continue heparin subcutaneous. 5 GI prophylaxis: Continue patient on Pepcid. Status: Full code.
[2019-07-05] MEDS: HYDROcodone/APAP 5-325MG 1 EACH TAB PO PRN (21:13)
[2019-07-06] MEDS: HYDROcodone/APAP 5-325MG 1 EACH TAB PO PRN ×3 (00:16→11:36)
[2019-07-06] MEDS: HEPARIN SODIUM,PORCINE 5,000 UNIT/ML 1 ML VIAL SQ SCH ×2 (00:16→08:09)
[2019-07-06 01:25] VITALS: PULSE 58
[2019-07-06] MEDS: D5-0.45% NACL WITH KCL 20MEQ/L 1,000 ML IV SCH ×2 (05:32→11:04)
[2019-07-06] MEDS: LACTATED RINGERS 1,000 ML IV SCH (05:41)
[2019-07-06 07:44] LABS: ALT 37 U/L (4-49); AST 37 U/L (17-59); African American GFR (CKD) >90 (>60 ml/min/1.73 sqM); Albumin 3.6 g/dL (3.5-5.0); Alkaline Phosphatase 77 U/L (38-126); Anion Gap 5 mmol/L; Blood Urea Nitrogen 14 mg/dL (9-20); Calcium 8.6 mg/dL (8.4-10.2); Carbon Dioxide 28 mmol/L (22-30); Chloride 102 mmol/L (98-107); Glucose 108 mg/dL (74-99); Non-African American GFR(CKD) >90 (>60 ml/min/1.73 sqM); Potassium 4.7 mmol/L (3.5-5.1); Sodium 135 mmol/L (137-145); Total Bilirubin 0.5 mg/dL (0.2-1.3); Total Protein 6.2 g/dL (6.3-8.2)
[2019-07-06] MEDS: FAMOTIDINE 20 MG/2 ML VIAL IV SCH (08:09)
[2019-07-06 08:28] VITALS: BP 165/89; RESP 19; TEMP 98
--- NOTE | 2019-07-06 10:57 | P.DS ---
<Francy Tam - Last Filed: 07/06/19 10:55> Providers Expected date of discharge: 07/06/19 Hospital Course: 54 year old male who underwent ow anterior sigmoid resection and repair of umbilical hernia. Patient is doing well postoperatively without any immediate complications. He is tolerating diet without nausea or vomiting. Passing flatus and having bowel movements. Pain is controlled on oral medications. Vital signs are stable. He is stable for discharge home today. Please see EMR for further hospital course details. Discharge Diagnosis: 1. Colon cancer, status post low anterior sigmoid resection and repair of umbilical hernia Nurse practitioner note has been reviewed by physician. Signing provider agrees with the documented findings, assessment, and plan of care. Patient Condition at Discharge: Stable Plan - Discharge Summary Discharge Rx Participant: Yes New Discharge Prescriptions: New Hydrocodone/Acetaminophen [Brighton 5-325] 1 tab PO Q6HR PRN #10 tab PRN Reason: Pain No Action Sildenafil Citrate [Viagra] 25 mg PO DIRECTED PRN PRN Reason: ERECTILE DYSFUNCTION Discharge Medication List Sildenafil Citrate [Viagra] 25 mg PO DIRECTED PRN 04/06/19 [History] Hydrocodone/Acetaminophen [Brighton 5-325] 1 tab PO Q6HR PRN #10 tab 07/06/19 [Rx] Follow up Appointment(s)/Referral(s): Rafael Rodriges MD [Medical Doctor] - 07/15/19 8:40 am Zain Paul MD [Primary Care Provider] - 1 Week (Please call office for you appointment. Thank you.) Patient Instructions/Handouts: Colectomy (DC) Activity/Diet/Wound Care/Special Instructions: No driving while taking Brighton No lifting over 10 pounds You may shower. No soaking or tub baths Very light activity until you are reevaluated at your follow up appointment with your surgeon Discharge Disposition: HOME SELF-CARE <Rafael Rodriges - Last Filed: 07/06/19 13:36> Providers Date of admission: 07/02/19 07:00 Attending physician: Rafael Rodriges Consults: 07/02/19 10:52 Consult Physician Routine Consulting Provider: Zain Paul Consult Reason/Comments: Medical management Do you want consulting provider notified?: Yes Primary care physician: Zain Paul - Discharge Diagnosis(es) (1) Cancer of sigmoid colon Status: Acute
--- NOTE | 2019-07-06 15:01 | P.PN ---
Subjective Progress Note Date: 07/06/19 This is a 54-year-old male patient of Dr. Paul with past medical history of colon cancer recently diagnosed following colonoscopy done by Dr. Reno. Pathology was positive for sigmoid colon polyp invasive moderately differentiated adenocarcinoma arising in tubular adenoma. Patient is been b rought into the hospital under care of Dr. Rodriges status post low anterior sigmoid resection and repair of umbilical hernia. Patient is currently on epidural for pain control and Li catheter in place. He is tolerating clear liquids with no nausea or vomiting. Patient denies having any lightheadedness or dizziness. Patient states he is passing gas and did have a bowel movement. Patient states he is utilizing incentive spirometry 10 times per hour. Patient is reaching 3000 ML's. Patient states he is scheduled to see Dr. Gonzalez on July 28. 07/04: Patient remains with epidural and Li in place. His pain is a 0.5 out of 10. He states his appetite is good. He is tolerating diet of clear liquids with no nausea or vomiting. He has passing gas. Patient is ambulatory and using a walker. Patient is afebrile, heart rate 79, blood pressure 129/82, pulse ox 92% on room air. CBC is normal, sodium 134, creatinine 0.89, blood sugar 109. Patient is to start full liquids for dinner today. 07/05: Patient is doing very well still have epidural will come out today along with his Li catheter, pain is well controlled this point, no pathology from his surgery, mobility is much better, will increase diet to full liquid. 07/06: Patient has been seen by surgery this morning and is scheduled for discharge home. He is tolerating a low fiber diet. He is urinating, he is passing gas. Patient states the pain is controlled. Plan is for discharge: Patient will follow-up with Dr. Paul in the office. Patient is been afebrile, heart rate 58, blood pressure 165/89, pulse ox 94% on room air. Repeat blood work reveals sodium 135, creatinine 0.86. Pathology is pending. Objective - Vital Signs Vital signs: Vital Signs Temp 98.0 F 07/06/19 08:26 Pulse 58 L 07/06/19 00:48 Resp 19 07/06/19 09:05 BP 165/89 07/06/19 08:26 Pulse Ox 94 L 07/06/19 08:26 Intake & Output 07/05/19 07/06/19 07/06/19 18:59 06:59 18:59 Intake Total 1000 Balance 1000 Intake: Intake, IV Titration 1000 Amount D5-0.45% NaCl with KCl 1000 20Meq/l 1,000 ml @ 125 mls/hr IV .Q8H [facility] Rx#: [id number] Other: Voiding Method Toilet # Voids 2 - Exam Review of Systems Constitutional: Denies anorexia, Denies chills, Denies fatigue, Denies fever, Denies lethargy, Denies poor appetite, Denies weakness Eyes: denies blurred vision Ears, nose, mouth and throat: Denies headache, Denies sore throat, Denies vertigo Cardiovascular: Denies chest pain, Denies decreased exercise tolerance, Denies dyspnea on exertion, Denies edema, Denies leg edema, Denies lightheadedness, Denies shortness of breath, Denies syncope Respiratory: Denies cough, Denies cough with sputum, Denies dyspnea, Denies excessive sputum, Denies hemoptysis, Denies home oxygen, Denies snoring, Denies wheezing Gastrointestinal: Denies abdominal pain, Denies constipation, Denies diarrhea, Denies loss of appetite, Denies nausea, Denies vomiting Genitourinary: Denies dysuria, Denies urinary retention (li) Musculoskeletal: Denies frequent falls, Denies gait dysfunction, Denies muscle weakness, Denies myalgias Integumentary: Denies pruritus, Denies rash Neurological: Denies change in mentation, Denies change in speech, Denies numbness, Denies weakness Psychiatric: Denies anxiety, Denies depression Endocrine: Denies fatigue, Denies weight change Physical examination Gen: This is a 54-year-old male. He is sitting in a recliner fully dressed for discharge home today. HEENT: Head is atraumatic, normocephalic. Pupils equal, round. Sclerae is anicteric. NECK: Supple. No JVD. No lymphadenopathy. No thyromegaly. LUNGS: Clear to auscultation. No wheezes or rhonchi. No intercostal retracti ons. HEART: Regular rate and rhythm. No murmur. ABDOMEN: Soft. Bowel sounds active. No masses. No tenderness. Midline incision. EXTREMITIES: No pedal edema. No calf tenderness. NEUROLOGICAL: Patient is awake, alert and oriented x3. Cranial nerves 2 through 12 are grossly intact. - Labs CBC & Chem 7: 07/05/19 06:47 07/06/19 06:40 Labs: Abnormal Lab Results - Last 24 Hours (Table) 07/06/19 Range/Units 06:40 Sodium 135 L (137-145) mmol/L Glucose 108 H (74-99) mg/dL Total Protein 6.2 L (6.3-8.2) g/dL Assessment and Plan Plan: 1. Sigmoid colon cancer status post lower anterior sigmoid resection and repair of umbilical hernia. Continue current pain management, incentive spirometry to reduce incidence of atelectasis and hospital-acquired pneumonia, activity. Patient is tolerating diet. Pathology is pending. 2. Osteoarthritis with previous history of left total hip arthroplasty stable. 3. DVT prophylaxis. Heparin subcu. 4. GI prophylaxis. Pepcid. Discharge plan: home today Impression and plan of care have been directed as dictated by the signing physician. Kate Ann nurse practitioner acting as scribe for signing physici an.
== END 2019-07-06 12:49 | disposition home or self-care (01) | DRG 331 ==
LOC: 2ORMAIN 07:00 → 4SSUR 10:42
PROVIDERS: ADMIT Surgery; ATTEND Surgery
PROC: 0WQF0ZZ Repair Abdominal Wall, Open Approach (ICD-10-PCS; principal; 2019-07-02 08:45)
PROC: 0DBN0ZZ Excision of Sigmoid Colon, Open Approach (ICD-10-PCS; principal; 2019-07-02 08:45)
DX: C18.7 Malignant neoplasm of sigmoid colon (principal); F17.290 Nicotine dependence, other tobacco product, uncomplicated; K42.9 Umbilical hernia without obstruction or gangrene; M19.90 Unspecified osteoarthritis, unspecified site; Z96.642 Presence of left artificial hip joint; Z82.0 Family history of epilepsy and other diseases of the nervous system
CPT/HCPCS: 36415; 80048; 80051; 80053; 85025; 85027; 86850; 86900; 86901; 88309; 93005

== ENCOUNTER 2020-08-01 07:20 | Day surgery (SDC) | payer BC ==
[2020-07-27 15:32] VITALS: BMI 26.6
[~2020-08-01 07:20] MED LIST changes: -DEXAMETHASONE SOD PHOSPHATE 10 MG/ML 1 ML VIAL IV ONE; -HEPARIN SODIUM,PORCINE 5,000 UNIT/ML 1 ML VIAL SQ ONE; -HYDROmorphone 0.5 MG/0.5 ML SYRINGE IVP PRN; +LACTATED RINGERS 1,000 ML IV SCH; -LIDOCAINE 1% 20 ML VIAL (10MG/ML) FOR IV START INTRADERMA PRN; -ONDANSETRON 4 MG/2 ML VIAL IVP PRN; -SCOPOLAMINE 1.5MG/72HR PATCH TRANSDERM ONE; -metroNIDAZOLE-NS PMX 500 MG in SALINE 1 100ML.BAG IVPB ONE
[2020-08-01 07:44] VITALS: RESP 16; TEMP 97.4
[2020-08-01] MEDS ORDERED: LIDOCAINE 1% (10MG/ML) FOR IV START INTRADERMA ONE (07:50)
[2020-08-01] MEDS ORDERED: PROPOFOL 10 MG/ML 20 ML VIAL IV ONE (08:00)
--- NOTE | 2020-08-01 08:05 | P.GSHP ---
History of Present Illness H&P Date: 08/01/20 Chief Complaint: Colon cancer screening Patient here today for colonoscopy. Last colonoscopy 1 year ago. Patient had a malignant polyp. Underwent open sigmoid colectomy. No bowel complaints. Past Medical History Past Medical History: Cancer Additional Past Medical History / Comment(s): colon History of Any Multi-Drug Resistant Organisms: None Reported Past Surgical History: Bowel Resection, Joint Replacement Additional Past Surgical History / Comment(s): LT BIBI, Past Anesthesia/Blood Transfusion Reactions: No Reported Reaction Smoking Status: Current some day smoker - Past Family History Mother Family Medical History: No Reported History Additional Family Medical History / Comment(s): Mother is alive at age 75 with Alzheimer's dementia. Father Additional Family Medical History / Comment(s): Patient does not have any contact with his father but does know that he has history of diverticulitis. Sister(s) Additional Family Medical History / Comment(s): Patient has 2 sisters with no major medical problems. Patient has 2 stepbrothers. Patient has one son that is mentally handicapped and one daughter with no major medical problems. Medications and Allergies Home Medications Medication Instructions Recorded Confirmed Type Sildenafil Citrate [Viagra] 25 mg PO DIRECTED PRN 04/06/19 08/01/20 History Allergies Allergy/AdvReac Type Severity Reaction Status Date / Time No Known Allergies Allergy Verified 07/27/20 15:38 Surgical - Exam Vital Signs Temp Pulse Resp BP Pulse Ox 97.4 F L 73 16 144/79 97 08/01/20 07:40 08/01/20 07:40 08/01/20 07:40 08/01/20 07:40 08/01/20 07:40 Physical exam: General: Well-developed, well-nourished HEENT: Normocephalic, sclerae nonicteric Abdomen: Nontender, nondistended Extremities: No edema Neuro: Alert and oriented Assessment and Plan (1) Cancer of sigmoid colon Narrative/Plan: Will proceed with colonoscopy at this time Current Visit: No Status: Acute Code(s): C18.7 - MALIGNANT NEOPLASM OF SIGMOID COLON SNOMED Code(s): 034368687
--- NOTE | 2020-08-01 08:17 | P.PCN ---
Date of Procedure: 08/01/20 Procedure(s) Performed: PREOPERATIVE DIAGNOSIS: Colon cancer screening, personal history of colon cancer POSTOPERATIVE DIAGNOSIS: Normal exam PROCEDURE: Colonoscopy ANESTHESIA: MAC SURGEON: Rafael Rodriges M.D. SPECIMENS: None ENDOSCOPIC PROCEDURE: The patient was placed on the endoscopy table in the left decubitus position. The Olympus colonoscope was inserted into the anus and passed under direct visualization to the base of the cecum. The appendiceal orifice was visualized. From that point the scope was slowly withdrawn inspecting all surfaces carefully. There were no neoplastic inflammatory or polypoid lesions throughout the cecum, ascending, transverse, descending, or rectum. The anastomosis was visualized and appeared widely patent. There was no visible diverticulosis noted. Digital rectal examination was normal. The patient was taken to the recovery room in stable condition per anesthesia guidelines. RECOMMENDATIONS: Resume diet. Follow-up colonoscopy 3 years.
[2020-08-01 08:32] VITALS: BP 116/77; PULSE 62
== END 2020-08-01 08:52 | disposition home or self-care (01) ==
LOC: ORWHC2ENDO 07:20
PROVIDERS: ATTEND Surgery
DX: Z12.11 Encounter for screening for malignant neoplasm of colon (principal); Z85.038 Personal history of other malignant neoplasm of large intestine; Z98.0 Intestinal bypass and anastomosis status; Z96.642 Presence of left artificial hip joint; F17.290 Nicotine dependence, other tobacco product, uncomplicated; Z81.8 Family history of other mental and behavioral disorders; Z83.79 Family history of other diseases of the digestive system; Z79.899 Other long term (current) drug therapy
CPT/HCPCS: J2704; G0105; 45378

== ENCOUNTER 2023-07-29 08:17 | Day surgery (SDC) | payer BC ==
[2023-07-25 16:03] VITALS: BMI 25.0
[2023-07-29] MEDS: LACTATED RINGERS 1,000 ML IV SCH (08:45)
[2023-07-29] MEDS ORDERED: PROPOFOL 10 MG/ML 20 ML VIAL IV ONE (08:49)
--- NOTE | 2023-07-29 08:52 | P.GSHP ---
History of Present Illness H&P Date: 07/29/23 Chief Complaint: Colon cancer screening 58-year-old male here for colonoscopy. Last colonoscopy 3 years ago. Patient with history of sigmoid colon cancer in the past. Doing well. No bowel complaints. Past Medical History Past Medical History: Cancer, Osteoarthritis (OA) Additional Past Medical History / Comment(s): hx of colon cancer with resection 06/2019. History of Any Multi-Drug Resistant Organisms: None Reported Past Surgical History: Bowel Resection, Joint Replacement Additional Past Surgical History / Comment(s): total left hip, low anterior sigmoid resection with umbilical hernia repair. (06/2019) Past Anesthesia/Blood Transfusion Reactions: No Reported Reaction Smoking Status: Current some day smoker - Past Family History Mother Family Medical History: No Reported History, Dementia Additional Family Medical History / Comment(s): . Father Family Medical History: No Reported History Additional Family Medical History / Comment(s): . Sister(s) Family Medical History: No Reported History Additional Family Medical History / Comment(s): . Medications and Allergies Home Medications Medication Instructions Recorded Confirmed Type Ibuprofen [Motrin] 800 mg PO ONCE PRN 07/25/23 07/25/23 History Melatonin (Unknown Dose) 1 dose PO HS PRN 07/25/23 History Multivitamins, Thera [Multivitamin 1 tab PO DAILY 07/25/23 07/25/23 History (formulary)] Sildenafil Citrate 50 mg PO DIRECTED PRN 07/25/23 07/29/23 History Allergies Allergy/AdvReac Type Severity Reaction Status Date / Time No Known Allergies Allergy Verified 07/29/23 08:35 Surgical - Exam Vital Signs Temp Pulse Resp BP Pulse Ox 97.3 F L 68 16 148/88 98 07/29/23 08:40 07/29/23 08:40 07/29/23 08:40 07/29/23 08:40 07/29/23 08:40 Physical exam: General: Well-developed, well-nourished HEENT: Normocephalic, sclerae nonicteric Abdomen: Nontender, nondistended Extremities: No edema Neuro: Alert and oriented Assessment and Plan (1) Cancer of sigmoid colon Narrative/Plan: Will proceed with colonoscopy at this time Current Visit: No Status: Acute Code(s): C18.7 - MALIGNANT NEOPLASM OF SIGMOID COLON SNOMED Code(s): 858138803
[2023-07-29 09:01] VITALS: TEMP 97.3
--- NOTE | 2023-07-29 09:03 | P.PCN ---
Date of Procedure: 07/29/23 Procedure(s) Performed: PREOPERATIVE DIAGNOSIS: history of colon cancer POSTOPERATIVE DIAGNOSIS: Normal exam PROCEDURE: Colonoscopy ANESTHESIA: MAC SURGEON: Rafael Rodriges M.D. SPECIMENS: None ENDOSCOPIC PROCEDURE: The patient was placed on the endoscopy table in the left decubitus position. The Olympus colonoscope was inserted into the anus and passed under direct visualization to the base of the cecum. The appendiceal orifice was visualized. From that point the scope was slowly withdrawn inspect ing all surfaces carefully. There were no neoplastic inflammatory or polypoid lesions throughout the cecum, ascending, transverse, descending and rectum. There was no visible diverticulosis. Digital rectal examination was normal. The patient was taken to the recovery room in stable condition per anesthesia guidelines. RECOMMENDATIONS: Resume diet. Repeat colonoscopy 3 to 5 years.
[2023-07-29 09:36] VITALS: BP 105/66; PULSE 64; RESP 20
== END 2023-07-29 09:41 | disposition home or self-care (01) ==
LOC: ORWHC2ENDO 08:17
PROVIDERS: ATTEND Surgery
DX: Z12.11 Encounter for screening for malignant neoplasm of colon (principal); F17.210 Nicotine dependence, cigarettes, uncomplicated; M19.90 Unspecified osteoarthritis, unspecified site; Z86.010 Personal history of colon polyps; Z98.890 Other specified postprocedural states; Z79.899 Other long term (current) drug therapy; Z96.642 Presence of left artificial hip joint
CPT/HCPCS: 45378; J2704